=== PATIENT | female | born 2000 | race Two or more races ===

== ENCOUNTER 2025-07-26 06:55 | Observation (INO) | payer OTHER, MEDICAID ==
--- NOTE | 2025-07-26 08:03 | DVH ---
BIOPHYSICAL PROFILE HISTORY: POSTDATES TECHNIQUE: Multiple transabdominal real-time grayscale sonographic images through the gravid uterus of the fetus with duplex Doppler color flow and M-mode spectral analysis FINDINGS: BIOPHYSICAL PROFILE: breathing score: 2 movement score: 2 tone score: 2 Quantitative WENDI score: 2 (WENDI: 12.7 Cm.) Total score: 8 The cervix WAS NOT SEEN Single live fetus in CEPHALIC presentation. heart rate 132 beats per minute. Grade II posterior placenta without previa or abruption IMPRESSION: Biophysical profile score: 8/8
--- NOTE | 2025-07-26 12:49 | DVHDS2 ---
Physician Discharge Progress N Final Diagnosis: term labor check 40wks Operations or Procedures: Operations or Procedures nst reactive reviwed,sono Condition on Discharge: Good Disposition: Home Discharge Instructions: Diet: Regular Activity: No Restrictions, As Tolerated Medications: na Follow Up Care: Specialist: 1 day for induction Discharge Statement: "Patient was advised to return to the ER or call 911 if any headaches, dizziness, shortness of breath, chest pain, abdominal pain, bleeding, fevers, or worsening of medical condition. Patient was counseled about treatment plan, medications, possible side effects, patientverbalized understanding. All questions were answered to the best of my ability. This discharge took greater then 30 minutes in planning, reviewing documentation, counseling the patient, and discussing with other team members." Visit Coding OBGYN Date of Service: Jul 26, 2025 Billing Provider: CHEY STAPLES DO PROPOSAL CONSULTANT Common Visit Codes: [id number] OBS CARE (HIGH) PROPOSAL CONSULTANT Procedure Codes: 23824-37- NON-STRESS TEST CHEY STAPLES DO Jul 26, 2025 12:49
[2025-07-27] MEDS ORDERED: PREN1TAB71 PO (21:15)
== END 2025-07-26 08:33 | disposition home or self-care (01) ==
LOC: LDRP 06:55
PROVIDERS: ADMIT Obstetrics & Gynecology; ATTEND Obstetrics & Gynecology
DX: O48.0 Post-term pregnancy (principal); Z3A.40 40 weeks gestation of pregnancy; Z98.890 Other specified postprocedural states
CPT/HCPCS: 76818; 81002; 94760; G0378; 59025; 76819

== ENCOUNTER 2025-07-27 07:00 | Inpatient (IN) | payer OTHER, MEDICAID ==
[~2025-07-27] VITALS: Ht 167.6 cm; Wt 73.5 kg
[2025-07-27] MEDS ORDERED: LIDOCAINE 2%HCL (LOCAL ANESTH.) INJ 20ML MDV IJ PRN (07:15)
[2025-07-27] MEDS ORDERED: PENICILLIN G POT 5MIL/D5 50ML 50 ML IV ONE (07:15)
[2025-07-27] MEDS ORDERED: BUTORPHANOL TARTRATE 2 MG/1 ML VIAL IV PRN ×2 (07:15)
[2025-07-27 07:46] LABS: Hematocrit 36.3 % (36.0-46.0); Hemoglobin 12.4 g/dL (12.2-16.2); Mean Corpuscular Hemoglobin 29.3 pg (28.0-32.0); Mean Corpuscular Volume 85.6 fL (80.0-100.0); Nucleated Red Blood Cells % 0.0 %
[2025-07-27 07:53] LABS: Urine Protein, UAD Negative (Negative)
[2025-07-27 07:58] LABS: Alanine Aminotransferase 20 U/L (7-40); Albumin 4.2 g/dL (3.2-4.8); Anion Gap 13 (5-15); BUN/Creatinine Ratio 8.2 (10.0-20.0); Calcium 9.1 mg/dL (8.7-10.4); Carbon Dioxide 21 mmol/L (20-31); Chloride 105 mmol/L (98-107); Sodium 139 mmol/L (136-145); Total Protein 7.1 g/dL (5.7-8.2)
[2025-07-27 07:59] LABS: Bilirubin, Total 0.4 mg/dL (0.2-1.0)
[2025-07-27 08:02] LABS: INR 0.92 (0.9-1.15); Partial Thromboplastin Time 23.4 SEC (24.5-34.5); Prothrombin Time 9.8 sec (9.3-11.8)
[2025-07-27 08:04] LABS: Alkaline Phosphatase 256 U/L (46-116); Blood Urea Nitrogen 5 mg/dL (9-23); Glucose 115 mg/dL (74-106); Potassium 3.4 mmol/L (3.5-5.1)
[2025-07-27 08:05] LABS: Amphetamine Screen, Urine Neg (NEGATIVE); Barbiturate Scree,Urine Neg (NEGATIVE); Benzodiazephine Screen, Urine Neg (NEGATIVE); Cannabinoid Screen, Urine Neg (NEGATIVE); Cocaine Screen, Urine Neg (NEGATIVE); Opiate Scree,Urine Neg (NEGATIVE); Phencyclidine Screen, Urine Neg (NEGATIVE)
--- NOTE | 2025-07-27 09:15 | DVHHP ---
CHIEF COMPLAINT: Here for induction of labor. The patient desires induction of labor. HISTORY OF PRESENT ILLNESS: The patient is a 24-year-old 1, para 0 with EDC 07/26, estimated gestational age of 40 plus weeks, admitted for induction of labor. The patient was noted to be 2 cm. The patient's last estimated weight was 7 pounds 2 ounces. She denies having any ruptured membranes or contractions. PAST MEDICAL HISTORY: None. PAST SURGICAL HISTORY: None. SOCIAL HISTORY: None. FAMILY HISTORY: None. OBSTETRIC AND GYNECOLOGIC HISTORY: Blood type A positive, Rubella immune, NIPT and AFP negative. REVIEW OF SYSTEMS: Consistent with HPI. PHYSICAL EXAMINATION: VITAL SIGNS: Stable, afebrile. HEENT: Within normal limits. CARDIOVASCULAR: Regular rate and rhythm. LUNGS: Clear to auscultation. BREASTS: Symmetrical, no masses. ABDOMEN: Gravid, fundal height of 36. Estimated weight 7 pounds 2 ounces. PELVIC: 2 cm, 60%, -2. EXTREMITIES: No clubbing, cyanosis, or edema. IMPRESSION: Intrauterine at 40 plus weeks for induction of labor. PLAN: Induction of labor. Informed consent obtained. Risks and complications of induction were discussed with the patient. We will proceed with Cytotec. Informed consent obtained. DO REYNOLD Metcalf TID: [id number] RECEIPT: [id number]
[2025-07-27] MEDS: LACTATED RINGER'S 1,000 ML IV SCH (10:33)
[2025-07-27] MEDS: PHISODERM TOP SOLN 240ML BTL TOP PRN (10:44)
[2025-07-27] MEDS: DERMOPLAST 60ML BOTTLE TOP PRN (10:44)
[2025-07-27] MEDS: WITCH HAZEL-GLYCERIN PAD TOP PRN (10:44)
[2025-07-27] MEDS ORDERED: PENICILLIN G POTASSIUM 2,500,000 UNITS in D5W 5% 50 ML IV SCH (11:15)
--- NOTE | 2025-07-27 12:23 | DVHPN2 ---
Chief Complaints Patient reports: No new complaints Nursing reports: No new complaints Objective Medications Current Medications Medications (Trade) Dose Ordered Sig/Vignesh Route PRN Reason Start Time Stop Time Status Last Admin Benzocaine (Dermoplast) 1 applic PRN PRN TOP PERINEAL AREA DISCOMFORT 07/27/25 07:15 07/27/25 10:44 Butorphanol Tartrate (Stadol Injection) 1 mg Q4HPRN PRN IV MODERATE PAIN (4-6 PAIN SCALE) 07/27/25 07:15 Butorphanol Tartrate (Stadol Injection) 2 mg Q4HPRN PRN IV SEVERE PAIN (7-10 PAIN SCALE) 07/27/25 07:15 Lactated Ringer's 1,000 ml @ 125 mls/hr Q8H IV 07/27/25 07:15 07/27/25 11:14 Lidocaine HCl (Xylocaine) 20 ml ONCE PRN IJ PERINEAL AREA DISCOMFORT 07/27/25 07:15 Misoprostol (Cytotec) 50 mcg Q4HPRN PRN PO CERVICAL RIPENING 07/27/25 10:00 07/27/25 10:30 Penicillin G Potassium [id number] units/Dextrose 50 ml @ 100 mls/hr Q4H IV 07/27/25 11:15 Sodium Lauryl Sulfate (Phisoderm) 240 ml PRN PRN TOP PERINEAL AREA DISCOMFORT 07/27/25 07:15 07/27/25 10:44 Witch Edith (Tucks) 1 pad PRN PRN TOP PERINEAL AREA DISCOMFORT 07/27/25 07:15 07/27/25 10:44 Others ve-2cm unchanged Studies Laboratory Tests 07/27/25 07:22 Test 07/27/25 07:22 Range/Units Serum Glucose 115 H 74-106 mg/dL Ass/Plan Assessment iol Plan rec one cytotec Visit Coding OBGYN Date of Service: Jul 27, 2025 Billing Provider: CHEY STAPLES DO CORE FINISHER Common Visit Codes: [id number] OBS CARE (HIGH) CORE FINISHER Procedure Codes: 61985-46- NON-STRESS TEST CHEY STAPLES DO Jul 27, 2025 12:23
[2025-07-27] MEDS ORDERED: LACTATED RINGER'S 1,000 ML IV ONE (16:30)
--- NOTE | 2025-07-27 20:47 | DVH ---
ULTRASOUND BIOPHYSICAL PROFILE REASON FOR EXAM: Trial of labor. Post-dates. .40 weeks 1 day. VANESA 07/26/2025. FINDINGS: Two points each were awarded for the following: tone, breathing, movement and adequate amniotic fluid index. Biophysical profile score is 8 out of a possible 8. The amniotic fluid index is 10.4 cm. The fetus is in cephalic position and the placenta is posterior. heart rate 129 beats per minute. IMPRESSION: BIOPHYSICAL PROFILE SCORE OF 8/8.
[2025-07-27] MEDS ORDERED: PREN1TAB71 PO (21:15)
--- NOTE | 2025-07-27 21:37 | DVHPN2 ---
CNM Labor Progress Note Date and Time Seen Date Seen: Jul 27, 2025 Time Seen: 19:30 Subjective Patient reports: No new complaints Monitoring Method Monitoring Method: External Heart Rate Heart Rate Baseline: 130 Heart Rate Variability: Moderate Presence of FHR Accelerations: Yes Presence of FHR Decelerations: No Changes in Trends of Patterns: No Are all 5 Components of the FH: Yes Contractions Contractions Frequency: Other Duration of Contraction: 70 Contractions Intensity: Moderate Contractions Resting Tone: Relaxed Membranes Membranes: Intact Vaginal Exam Vag Exam Deferred: No Vaginal Exam Dilation: 1 Vaginal Exam Effacement: 50 Vaginal Exam Station: -2 Vaginal Exam Presentation: VTX Vaginal Exam Show: None Medications Medications - Pitocin: No Medication - Epidural: No Medication - Other Misoprostol Dose #1 given at 1030AM Lab Results Lab Results Current Medications Medications (Trade) Dose Ordered Sig/Vignesh Start Time Stop Time Status Last Admin Dose Admin Lactated Ringer's 1,000 ml @ 125 mls/hr Q8H 07/27/25 07:15 07/27/25 23:44 DC 07/27/25 11:14 125 MLS/HR Penicillin G Potassium 50 ml @ 100 mls/hr ONCE ONCE 07/27/25 07:15 07/27/25 07:44 DC Penicillin G Potassium [id number] units/Dextrose 50 ml @ 100 mls/hr Q4H 07/27/25 11:15 07/27/25 23:44 DC Rolando Sharma (Tucks) 1 pad PRN PRN 07/27/25 07:15 07/27/25 23:44 DC 07/27/25 10:44 1 PAD Sodium Lauryl Sulfate (Phisoderm) 240 ml PRN PRN 07/27/25 07:15 07/27/25 23:44 DC 07/27/25 10:44 240 ML Benzocaine (Dermoplast) 1 applic PRN PRN 07/27/25 07:15 07/27/25 23:44 DC 07/27/25 10:44 1 APPLIC Butorphanol Tartrate (Stadol Injection) 1 mg Q4HPRN PRN 07/27/25 07:15 07/27/25 23:44 DC Butorphanol Tartrate (Stadol Injection) 2 mg Q4HPRN PRN 07/27/25 07:15 07/27/25 23:44 DC Lidocaine HCl (Xylocaine) 20 ml ONCE PRN 07/27/25 07:15 07/27/25 23:44 DC Misoprostol (Cytotec) 50 mcg Q4HPRN PRN 07/27/25 10:00 07/27/25 23:44 DC 07/27/25 10:30 50 MCG Ephedrine Sulfate (ePHEDrine SULFATE) 10 mg PRN ONCE 07/27/25 16:30 07/27/25 16:51 DC Lactated Ringer's 1,000 ml @ 1,000 mls/hr Q1H ONCE 07/27/25 16:30 07/27/25 17:29 DC Laboratory Tests Test 07/27/25 07:37 07/27/25 07:22 Range/Units Urine Color Light-yellow Yellow Urine Clarity Clear Clear Urine pH 6.5 5.0-9.0 Urine Specific [place] 1.015 1.001-1.035 Urine Protein Negative Negative Urine Ketones Negative Negative Urine Blood Negative Negative /uL Urine Nitrite Negative Negative Urine Bilirubin Negative Negative Urine Urobilinogen Normal Negative mg/dL Urine Leukocyte Esterase 2+ Negative /uL Urine RBC 1 0 - 4 /hpf Urine Microscopic WBC 3 0-5 /HPF Urine Squamous Epithelial Cells Few <5 /hpf Urine Bacteria Few H None Seen /hpf Urine Mucus Few None Seen Urine Glucose Normal Normal mg/dL Urine Opiates Screen Neg NEGATIVE Urine Fentanyl Screen Neg NEGATIVE Urine Barbiturates Screen Neg NEGATIVE Urine Phencyclidine Screen Neg NEGATIVE Urine Amphetamines Screen Neg NEGATIVE Urine Benzodiazepines Screen Neg NEGATIVE Urine Cocaine Screen Neg NEGATIVE Urine Cannabinoids Screen Neg NEGATIVE White Blood Count 11.0 H 4.4-10.8 10^3/uL Red Blood Count 4.24 4.0-5.20 10^6/uL Hemoglobin 12.4 12.2-16.2 g/dL Hematocrit 36.3 36.0-46.0 % Mean Corpuscular Volume 85.6 80.0-100.0 fL Mean Corpuscular Hemoglobin 29.3 28.0-32.0 pg Mean Corpuscular Hemoglobin Concent 34.3 32.0-36.0 g/dL Red Cell Distribution Width 14.5 H 11.8-14.3 % Platelet Count 324 140-450 10^3/uL Mean Platelet Volume 8.3 6.9-10.8 fL Neutrophils (%) (Auto) 71.3 37.0-80.0 % Lymphocytes (%) (Auto) 20.8 10.0-50.0 % Monocytes (%) (Auto) 6.3 0.0-12.0 % Eosinophils (%) (Auto) 1.2 0.0-7.0 % Basophils (%) (Auto) 0.4 0.0-2.0 % Neutrophils # (Auto) 7.8 1.6-8.6 10 ^3/uL Lymphocytes # (Auto) 2.3 0.4-5.4 10 ^3/uL Monocytes # (Auto) 0.7 0-1.3 10 ^3/uL Eosinophils # (Auto) 0.1 0-0.8 10 ^3/uL Basophils # (Auto) 0 0-0.2 10 ^3/uL Nucleated Red Blood Cells 0.0 % Prothrombin Time 9.8 9.3-11.8 sec Prothrombin Time INR 0.92 0.9-1.15 Activated Partial Thromboplast Time 23.4 L 24.5-34.5 SEC Sodium Level 139 136-145 mmol/L Potassium Level 3.4 L 3.5-5.1 mmol/L Chloride Level 105 98-107 mmol/L Carbon Dioxide Level 21 20-31 mmol/L Anion Gap 13 5-15 Blood Urea Nitrogen 5 L 9-23 mg/dL Creatinine 0.61 0.550-1.02 mg/dL Glomerular Filtration Rate Calc 130 >90 mL/min BUN/Creatinine Ratio 8.2 L 10.0-20.0 Serum Glucose 115 H 74-106 mg/dL Calcium Level 9.1 8.7-10.4 mg/dL Total Bilirubin 0.4 0.2-1.0 mg/dL Aspartate Amino Transferase (AST) 20 13-40 U/L Alanine Aminotransferase (ALT) 20 7-40 U/L Alkaline Phosphatase 256 H 46-116 U/L Total Protein 7.1 5.7-8.2 g/dL Albumin 4.2 3.2-4.8 g/dL Treponema pallidum Antibody Non-reactive Negative Hepatitis C Antibody Negative Negative Assessment Assessment <> IUP at 40w 2d <> GBS carrier <> Category 1 FHR tracing <. IOL Plan Plan In consultation with Dr. Pandey Considering / Given very little to no change in cervical status Offer serial IOL; pt to be discharged home and return for IOL in 2 days if Bio- Physical Profile is normal Patient can embark on natural activities /measures that can facilitate descent and labor at home Patient and family informed as above and they all agreed Plan discussed with: Patient, Spouse, Other (Patient's parents) Visit Coding OBGYN Date of Service: Jul 27, 2025 Billing Provider: CHEMO POLANCO CNM REGULATORY SERVICES CONSULTANT Common Visit Codes: [id number] INP/OBS CARE(HIGH) REGULATORY SERVICES CONSULTANT Procedure Codes: 12295-31- NON-STRESS TEST CHEMO POLANCO CNM Jul 27, 2025 21:37
--- NOTE | 2025-07-28 04:01 | DVHDS2 ---
Physician Discharge Progress N Final Diagnosis: <> IUP at 40w 2d <> GBS Carrier <> Category I FHR tracing <> BP 04/21 Operations or Procedures: Operations or Procedures <> IOL started with Cervical ripening <> IV hydration Consultations: Consultations In consultation with Dr. Pandey Considering / Given very little to no change in cervical status Offer serial IOL; pt to be discharged home and return for IOL in 2 days if Bio- Physical Profile is normal Patient can embark on natural activities / measures that can facilitate descent and labor at home Patient and family informed as above and they all agreed Commentary: Commentary In consultation with Dr. Pandey Considering / Given very little to no change in cervical status Offer serial IOL; pt to be discharged home and return for IOL in 2 days if Bio- Physical Profile is normal Patient can embark on natural activities /measures that can facilitate descent and labor at home Patient and family informed as above and they all agreed Condition on Discharge: Good Disposition: Home Discharge Instructions: Diet: Regular Activity: No Restrictions, As Tolerated Follow Up/Referral: Return to L & D on 07/29/25 for IOL if undelivered yet Medications: Continue Vitamin Follow Up Care: Discharge Statement: 3rd trimester emergency S&S [facility], labor & pre-eclampsia precautions reviewed with pt; advised to seek health care if any symptom including but not limited to any of the above occurs prior . "Patient was advised to return to the ER or call 911 if any headaches, dizziness, shortness of breath, chest pain, abdominal pain, bleeding, fevers, or worsening of medical condition. Patient was counseled about treatment plan, medications, possible side effects, patientverbalized understanding. All questions were answered to the best of my ability. This discharge took greater then 30 minutes in planning, reviewing documentation, counseling the patient, and discussing with other team members." Visit Coding OBGYN Date of Service: Jul 27, 2025 Billing Provider: CHEMO POLANCO CNM PLASTICS HEAT WELDER Common Visit Codes: 05287-AEP/OBS SAME DATE (HIGH) PLASTICS HEAT WELDER Procedure Codes: 74276-49- NON-STRESS TEST CHEMO POLANCO CNM Jul 28, 2025 04:01
== END 2025-07-27 21:55 | disposition home or self-care (01) | DRG 833 ==
LOC: LDRP 07:00
PROVIDERS: ADMIT Obstetrics & Gynecology; ATTEND Obstetrics & Gynecology
PROC: 0U7C7ZZ Dilation of Cervix, Via Natural or Artificial Opening (ICD-10-PCS; principal; 2025-07-27)
PROC: 3E0DXGC Introduction of Other Therapeutic Substance into Mouth and Pharynx, External Approach (ICD-10-PCS; 2025-07-27)
DX: O48.0 Post-term pregnancy (principal); O99.820 Streptococcus B carrier state complicating pregnancy; Z3A.40 40 weeks gestation of pregnancy
CPT/HCPCS: 36415; 76819; 80053; 80307; 81001; 85025; 85610; 85730; 86780; 86803; 86850; 86900; 86901; 94762; 96360; 96361; G0378; J7060

== ENCOUNTER 2025-07-30 08:26 | Inpatient (IN) | payer OTHER, MEDICAID ==
[~2025-07-30] VITALS: Ht 165.1 cm; Wt 73.9 kg
[~2025-07-30 08:26] MED LIST: PREN1TAB71 PO
[2025-07-30] MEDS ORDERED: LIDOCAINE 2%HCL (LOCAL ANESTH.) INJ 20ML MDV IJ PRN (09:00)
[2025-07-30] MEDS ORDERED: PHISODERM TOP SOLN 240ML BTL TOP PRN (09:00)
[2025-07-30] MEDS: LACT. RINGERS/OXYTOCIN 20UNITS 500 ML IV ONE (09:30)
[2025-07-30] MEDS: NALOXONE HCL 0.4 MG/ML VIAL IV ONE (09:30)
[2025-07-30 09:50] LABS: Hematocrit 34.6 % (36.0-46.0); Hemoglobin 11.4 g/dL (12.2-16.2); Mean Corpuscular Hemoglobin 28.4 pg (28.0-32.0); Mean Corpuscular Volume 86.1 fL (80.0-100.0); Nucleated Red Blood Cells % 0.0 %
[2025-07-30] MEDS: LACTATED RINGER'S 1,000 ML IV SCH (10:04)
[2025-07-30 10:09] LABS: Alanine Aminotransferase 18 U/L (7-40); Albumin 3.8 g/dL (3.2-4.8); Anion Gap 13 (5-15); BUN/Creatinine Ratio 11.7 (10.0-20.0); Calcium 8.9 mg/dL (8.7-10.4); Glucose 106 mg/dL (74-106); Potassium 3.6 mmol/L (3.5-5.1); Sodium 140 mmol/L (136-145); Total Protein 6.4 g/dL (5.7-8.2)
[2025-07-30] MEDS: ROPIVACAINE HCL 100 ML ONE (10:09)
[2025-07-30 10:10] LABS: Bilirubin, Total 0.3 mg/dL (0.2-1.0)
[2025-07-30 10:13] LABS: Alkaline Phosphatase 255 U/L (46-116); Blood Urea Nitrogen 7 mg/dL (9-23); Carbon Dioxide 19 mmol/L (20-31); Chloride 108 mmol/L (98-107)
[2025-07-30 10:23] LABS: INR 0.92 (0.9-1.15); Partial Thromboplastin Time 25.0 SEC (24.5-34.5); Prothrombin Time 9.8 sec (9.3-11.8)
[2025-07-30] MEDS: PENICILLIN G POT 5MIL/D5 50ML 50 ML IV ONE (10:48)
[2025-07-30 10:51] LABS: Urine Protein, UAD Negative (Negative)
[2025-07-30 11:02] LABS: Amphetamine Screen, Urine Neg (NEGATIVE); Barbiturate Scree,Urine Neg (NEGATIVE); Benzodiazephine Screen, Urine Neg (NEGATIVE); Cannabinoid Screen, Urine Neg (NEGATIVE); Cocaine Screen, Urine Neg (NEGATIVE); Opiate Scree,Urine Neg (NEGATIVE); Phencyclidine Screen, Urine Neg (NEGATIVE)
[2025-07-30] MEDS: PENICILLIN G POTASSIUM 2,500,000 UNITS in D5W 5% 50 ML IV SCH (14:47)
--- NOTE | 2025-07-30 16:09 | DVH ---
LIMITED OB ULTRASOUND > 14 WKS: HISTORY: Rule out Presenting Cord TECHNIQUE: Multiple real-time grayscale images of the gravid uterus with duplex doppler color flow and M-mode spectral analysis. FINDINGS: heart rate 142 beats per minute WENDI 7.0 cm Cervix 1.8 cm with fluid. Cephalic Presentation Grade 3 posterior placenta without previa or abruption. 3.6 x 2.1 x 2.4 cm lesion between the cervix and head with internal echos. IMPRESSION: 3.6 x 2.1 x 2.4 cm lesion between the cervix and head with internal echos could be a hematoma with a presenting cord not entirely excluded. This was not seen on the prior US exams.
[2025-07-30] MEDS ORDERED: ROPIVACAINE HCL 100 ML ONE ×2 (16:34→22:03)
--- NOTE | 2025-07-30 16:56 | DVH ---
BIOPHYSICAL PROFILE HISTORY: non reassurring heart tones TECHNIQUE: Multiple transabdominal real-time grayscale sonographic images through the gravid uterus of the fetus with duplex Doppler color flow and M-mode spectral analysis FINDINGS: BIOPHYSICAL PROFILE: breathing score: 0 movement score: 0 tone score: 0 Quantitative WENDI score: 2 (WENDI: 9.25 cm, MVP: 3.48 cm.) Total score: 2/8 The cervix not visible Single live fetus in cephalic presentation. heart rate 141 beats per minute. Posterior Grade 3 placenta without previa or abruption Single live fetus at 40 weeks 4 days Biophysical profile score 2/8 corresponding to an VANESA of 07 26 2025 IMPRESSION: 1. Biophysical profile score: 2/JAILENE WEBBER accompanying patient is aware of results. CRITICAL FINDINGS Critical Result: bpp: 2/8 Findings discussed with Jailene WEBBER , at 07/30/2025 04:52 PM, and acknowledged receipt and understanding of the findings. ..
[2025-07-30] MEDS: ACETAMINOPHEN 325 MG TAB PO PRN (17:58)
--- NOTE | 2025-07-30 21:55 | DVHHP2 ---
OB CC & HPI Date Date of Admission: Jul 29, 2025 Patient Identification: : 1 Para: 0 EDC: Jul 28, 2025 EGA: 40 2/7 Chief Complaints: Reason for admission: active labor, rupture of membranes Other reason for admission: SROM Admission Nurse Assessment Rev: Yes Past Medical History Cardiac: No pertinent Hx Pulmonary: No pertinent Hx Central Nervous System: No pertinent Hx GI: No pertinent Hx Hemotology/Oncology: No pertinent Hx Hepatobiliary: No pertinent Hx Psychiatric: No pertinent Hx Musculoskeletal: No pertinent Hx Rheumotologic: No pertinent Hx Infectious Disease: No peritnent Hx ENT: No pertinent Hx Renal/: No pertinent Hx Endocrine: No pertinent Hx Dermatology: No pertinent Hx OB History OB History Care: Good Care Ultrasounds: Normal mid trimester US Medical Complications: None Allergies: Coded Allergies: NO KNOWN ALLERGIES (Unverified , 07/27/25) Home Meds Reported Medications Vit W/ Ferrous Fumara (PNV PLUS MULTIVI) Plus Tab, 1 TAB PO DAILY, TAB 07/27/25 Current Medications Current Medications Medications (Trade) Dose Ordered Sig/Vignesh Route PRN Reason Start Time Stop Time Status Last Admin Lactated Ringer's 1,000 ml @ 125 mls/hr Q8H IV 07/30/25 09:00 07/30/25 10:04 Penicillin G Potassium [id number] units/Dextrose 50 ml @ 100 mls/hr Q4H IV 07/30/25 13:00 07/30/25 18:48 Witch Edith (Tucks) 1 pad PRN PRN TOP PERINEAL AREA DISCOMFORT 07/30/25 09:00 Sodium Lauryl Sulfate (Phisoderm) 240 ml PRN PRN TOP PERINEAL AREA DISCOMFORT 07/30/25 09:00 Benzocaine (Dermoplast) 1 applic PRN PRN TOP PERINEAL AREA DISCOMFORT 07/30/25 09:00 Lidocaine HCl (Xylocaine) 20 ml ONCE PRN IJ PERINEAL AREA DISCOMFORT 07/30/25 09:00 Oxytocin 1,000 ml @ 6 ml/hr Q24H IV 07/30/25 09:00 Acetaminophen (Tylenol Tablet) 650 mg Q6HP PRN PO PAIN SCALE 1-3 OR TEMP>100.4 07/30/25 17:45 07/30/25 17:58 Family & Social History Family/Social History Blood Type: A+ Rubella: immune RPR/VDRL: Negative GBS Status: Positive HBsAG: Negative Review of Systems Constitutional: No symptom reported Ears, Nose, & Throat: No symptom reported Eyes: No symptom reported Pulmonary/Respiratory: No symptom reported Cardiovascular: No symptom reported Gastrointestinal: No symptom reported Genitourinary: No symptom reported Musculoskeletal: No symptom reported Skin: No symptom reported Psychiatric: No symptom reported Endocrine: No symptom reported Hemotologic/Lymphatic: No symptom reported OB Admission Exam Physical Exam Vitals: Vital Signs Date Time Temp Pulse Resp B/P (MAP) Pulse Ox O2 Delivery O2 Flow Rate FiO2 07/30/25 17:58 100.4 HEENT: TMs Normal, Fontanelles Normal, Nasal Mucosa Normal, Eyes non-injected, Oropharynx Normal, PERRLA, Moist Membranes, EOMI Heart: Rhythm Normal Lungs: Clear Abdomen: Non tender Extremities: Normal Reflexes: Normal Cervical Dilatation: 5cm Effacement: 100% Station: 0 Membranes: Ruptured (clear) Amniotic Fluid: Clear Heart Rate: 140's Accelerations: Accelerations Present Short Term Variability: Present Long-Term Variability: Average (6-25) Contractions on Admission: < 5 Minutes Apart Intensity: Moderate OB Plan Plan Admitting Diagnosis: SROM Labor Plan: Expectant Management Other Plan: FSE IUPC placed she was having some subtle late, ultrasound performed positioning and questionable cord position. On my exam only caput no prolapse cord. I FSE IUPC placed. Amnioinfusion started. CAROL CUNNINGHAM DO Jul 30, 2025 21:55
--- NOTE | 2025-07-30 21:58 | LDN2 ---
Labor and Delivery Note Date 07/30/25 Age 24 1 Para 0 AB 0 EDC 07/28/2025 EGA 40+ wks Diagnosis SROM labor augmented Sex: Male Amniotic Fluid: Clear Anesthesia Epidural Episiotomy: No Labs Blood Bank 07/30/25 09:15: Blood Type A POSITIVE Complications none Conditions stable Flavorings Compounder none present Visit Coding OBGYN Date of Service: Jul 30, 2025 Billing Provider: CAROL CUNNINGHAM DO WHEEL SHOP SUPERVISOR Common Visit Codes: [id number] INP/OBS CARE(HIGH), 02576-QGB/OBS SAME DATE (LOW), 97345-DAK/OBS SAME DATE (MOD) WHEEL SHOP SUPERVISOR Procedure Codes: 87376-AEIPL OB CARE,VAG DELIVERY CAROL CUNNINGHAM DO Jul 30, 2025 21:58
[2025-07-30] MEDS: ceFAZolin 1GM/50ML 50 ML IV SCH (23:51)
[2025-07-30] MEDS: LACT. RINGERS/OXYTOCIN 20UNITS 1,000 ML IV SCH (23:53)
[2025-07-31] MEDS: LACT. RINGERS/OXYTOCIN 20UNITS 500 ML IV ONE (02:30)
--- NOTE | 2025-07-31 05:01 | DVHPN2 ---
Chief Complaints Patient reports: No new complaints, Feels better Nursing reports: No new complaints, No abdominal pain, No chest pain, No dizziness, No cough Objective Vitals Vital Signs Date Time Temp Pulse Resp B/P (MAP) Pulse Ox O2 Delivery O2 Flow Rate FiO2 07/31/25 00:03 99.4 Medications Current Medications Medications (Trade) Dose Ordered Sig/Vignesh Route PRN Reason Start Time Stop Time Status Last Admin Acetaminophen (Tylenol Tablet) 650 mg Q6HP PRN PO PAIN SCALE 1-3 OR TEMP>100.4 07/30/25 17:45 07/31/25 00:03 Benzocaine (Dermoplast) 1 applic PRN PRN TOP PERINEAL AREA DISCOMFORT 07/30/25 09:00 Cefazolin Sodium 50 ml @ 100 mls/hr Q8HR IV 07/30/25 23:30 07/30/25 23:51 Lactated Ringer's 1,000 ml @ 125 mls/hr Q8H IV 07/30/25 09:00 07/30/25 10:04 Lidocaine HCl (Xylocaine) 20 ml ONCE PRN IJ PERINEAL AREA DISCOMFORT 07/30/25 09:00 Oxytocin 1,000 ml @ 6 ml/hr Q24H IV 07/30/25 09:00 07/30/25 23:53 Penicillin G Potassium [id number] units/Dextrose 50 ml @ 100 mls/hr Q4H IV 07/30/25 13:00 07/30/25 22:46 Sodium Lauryl Sulfate (Phisoderm) 240 ml PRN PRN TOP PERINEAL AREA DISCOMFORT 07/30/25 09:00 Rolando Sharma (Tucks) 1 pad PRN PRN TOP PERINEAL AREA DISCOMFORT 07/30/25 09:00 General: Normal ENT: Normal Neck: Normal Lungs: Normal Cardiovascular: Normal Abdominal: Normal (Uterus 12 weeks size firm minimal lochia) Musculoskeletal: Normal Extremities: Normal Neurological: Normal Studies Laboratory Tests 07/30/25 09:15 Test 07/30/25 09:15 Range/Units Serum Glucose 106 74-106 mg/dL Ass/Plan Assessment day 1 stable improved Plan Advanced care. CAROL CUNNINGHAM DO Jul 31, 2025 05:01
[2025-07-31] MEDS ORDERED: ACETAMINOPHEN 325 MG TAB PO PRN (06:45)
[2025-07-31 07:00] VITALS: BP 119/83; PULSE 109; RESP 17; TEMP 98.2; O2SAT 96
[2025-07-31] MEDS: IBUPROFEN 600 MG TAB PO PRN (07:32)
[2025-07-31 11:00] VITALS: BP 110/68; PULSE 98; RESP 15; TEMP 98.4; O2SAT 98
[2025-07-31 15:00] VITALS: BP 112/69; PULSE 106; RESP 16; TEMP 98.1; O2SAT 98
[2025-07-31 18:47] VITALS: BP 109/72; PULSE 97; RESP 18; TEMP 98.2; O2SAT 97
[2025-07-31] MEDS: CEPHALEXIN 250 MG CAP PO SCH (22:00)
[2025-07-31 23:10] VITALS: BP 115/65; PULSE 90; RESP 17; TEMP 97.7; O2SAT 98
[2025-08-01 03:06] VITALS: BP 98/61; PULSE 106; RESP 16; TEMP 98.5; O2SAT 97
--- NOTE | 2025-08-01 05:38 | DVHDS2 ---
Discharge Summary Date of Admission Jul 30, 2025 at 09:01 Date of Discharge: Aug 01, 2025 Admitting Diagnosis Spontaneous rupture membranes intrauterine in labor Labs/Diagnostic Data: Laboratory Results Test 07/30/25 09:15 07/30/25 09:00 White Blood Count 11.5 10^3/uL (4.4-10.8) Red Blood Count 4.02 10^6/uL (4.0-5.20) Hemoglobin 11.4 g/dL (12.2-16.2) Hematocrit 34.6 % (36.0-46.0) Mean Corpuscular Volume 86.1 fL (80.0-100.0) Mean Corpuscular Hemoglobin 28.4 pg (28.0-32.0) Mean Corpuscular Hemoglobin Concent 33.0 g/dL (32.0-36.0) Red Cell Distribution Width 14.8 % (11.8-14.3) Platelet Count 309 10^3/uL (140-450) Mean Platelet Volume 8.3 fL (6.9-10.8) Neutrophils (%) (Auto) 71.5 % (37.0-80.0) Lymphocytes (%) (Auto) 19.1 % (10.0-50.0) Monocytes (%) (Auto) 8.1 % (0.0-12.0) Eosinophils (%) (Auto) 1.1 % (0.0-7.0) Basophils (%) (Auto) 0.2 % (0.0-2.0) Neutrophils # (Auto) 8.2 10 ^3/uL (1.6-8.6) Lymphocytes # (Auto) 2.2 10 ^3/uL (0.4-5.4) Monocytes # (Auto) 0.9 10 ^3/uL (0-1.3) Eosinophils # (Auto) 0.1 10 ^3/uL (0-0.8) Basophils # (Auto) 0 10 ^3/uL (0-0.2) Nucleated Red Blood Cells 0.0 % Prothrombin Time 9.8 sec (9.3-11.8) Prothrombin Time INR 0.92 (0.9-1.15) Activated Partial Thromboplast Time 25.0 SEC (24.5-34.5) Sodium Level 140 mmol/L (136-145) Potassium Level 3.6 mmol/L (3.5-5.1) Chloride Level 108 mmol/L (98-107) Carbon Dioxide Level 19 mmol/L (20-31) Anion Gap 13 (5-15) Blood Urea Nitrogen 7 mg/dL (9-23) Creatinine 0.60 mg/dL (0.550-1.02) Glomerular Filtration Rate Calc 130 mL/min (>90) BUN/Creatinine Ratio 11.7 (10.0-20.0) Serum Glucose 106 mg/dL (74-106) Calcium Level 8.9 mg/dL (8.7-10.4) Total Bilirubin 0.3 mg/dL (0.2-1.0) Aspartate Amino Transferase (AST) 20 U/L (13-40) Alanine Aminotransferase (ALT) 18 U/L (7-40) Alkaline Phosphatase 255 U/L (46-116) Total Protein 6.4 g/dL (5.7-8.2) Albumin 3.8 g/dL (3.2-4.8) Treponema pallidum Antibody Non-reactive (Negative) Urine Color Light-yellow (Yellow) Urine Clarity Clear (Clear) Urine pH 6.5 (5.0-9.0) Urine Specific [place] 1.017 (1.001-1.035) Urine Protein Negative (Negative) Urine Ketones Negative (Negative) Urine Blood Negative /uL (Negative) Urine Nitrite Negative (Negative) Urine Bilirubin Negative (Negative) Urine Urobilinogen Normal mg/dL (Negative) Urine Leukocyte Esterase 1+ /uL (Negative) Urine RBC 3 /hpf (0 - 4) Urine Microscopic WBC 7 /HPF (0-5) Urine Squamous Epithelial Cells Few /hpf (<5) Urine Bacteria None seen /hpf (None Seen) Urine Mucus Few (None Seen) Urine Glucose Normal mg/dL (Normal) Urine Opiates Screen Neg (NEGATIVE) Urine Fentanyl Screen Neg (NEGATIVE) Urine Barbiturates Screen Neg (NEGATIVE) Urine Phencyclidine Screen Neg (NEGATIVE) Urine Amphetamines Screen Neg (NEGATIVE) Urine Benzodiazepines Screen Neg (NEGATIVE) Urine Cocaine Screen Neg (NEGATIVE) Urine Cannabinoids Screen Neg (NEGATIVE) Other Laboratory Tests 07/30/25 09:15 Brief Hx & Hospital Course: Patient arrived from progressed to delivery no intrapartum or complications stable for discharge home day 2 Condition at Discharge: Good Final Diagnosis/Problems List Spontaneous vaginal delivery Discharge Disposition: Home Discharge Instruct/Medications Diet: Regular Activity: Light activity Activity comment: Pelvic rest 6 weeks Follow Up/Referral: Two weeks primary OB physician Medications: Resume home meds and vitamin Scheduled Vit W/ Ferrous Fumara (Pnv Plus Multivi), 1 TAB PO DAILY, (Reported) Discharge Statement: "Patient was advised to return to the ER or call 911 if any headaches, dizziness, shortness of breath, chest pain, abdominal pain, bleeding, fevers, or worsening of medical condition. Patient was counseled about treatment plan, medications, possible side effects, patientverbalized understanding. All questions were answered to the best of my ability. This discharge took greater then 30 minutes in planning, reviewing documentation, counseling the patient, and discussing with other team members." ASSESSMENT ASSESSMENT Assessment Visit Coding OBGYN Date of Service: Aug 01, 2025 Billing Provider: CAROL CUNNINGHAM DO CERTIFIED VEHICLE FIRE INVESTIGATOR Common Visit Codes: [id number] INP/OBS CARE(HIGH) CERTIFIED VEHICLE FIRE INVESTIGATOR Procedure Codes: [id number] OB CARE,VAG DELIVERY CAROL CUNNINGHAM DO Aug 01, 2025 05:38
[2025-08-01 07:00] VITALS: BP 108/65; PULSE 92; RESP 15; TEMP 98.2; O2SAT 98
[2025-08-01 11:10] VITALS: BP 118/59; PULSE 82; RESP 16; TEMP 98.7; O2SAT 98
[2025-08-01] MEDS: WITCH HAZEL-GLYCERIN PAD TOP PRN (11:23)
[2025-08-01] MEDS: DERMOPLAST 60ML BOTTLE TOP PRN (11:23)
[2025-08-01 15:00] VITALS: BP 114/70; PULSE 104; RESP 20; TEMP 98.4; O2SAT 98
[2025-08-01 19:30] VITALS: BP 129/83; PULSE 98; RESP 15; TEMP 98.8; O2SAT 98
[2025-08-01] MEDS ORDERED: DOCU-94 PO (19:44)
[2025-08-01] MEDS ORDERED: PREN1TAB71 PO (19:44)
[2025-08-01] MEDS ORDERED: IBU600T PO (19:44)
[2025-08-01 20:12] LABS: Hematocrit 28.7 % (36.0-46.0); Hemoglobin 9.8 g/dL (12.2-16.2); Mean Corpuscular Hemoglobin 28.9 pg (28.0-32.0); Mean Corpuscular Volume 84.8 fL (80.0-100.0); Nucleated Red Blood Cells % 0.0 %
[2025-08-01 23:00] VITALS: BP 122/75; PULSE 75; RESP 17; TEMP 98.3; O2SAT 97
[2025-08-02 03:00] VITALS: BP 105/64; PULSE 66; RESP 16; TEMP 98.3; O2SAT 96
--- NOTE | 2025-08-02 04:10 | DVHPN2 ---
Progress Note Date Seen: Aug 02, 2025 Subjective S: bleeding is less, eating food without issues, denies lightheaded/dizziness, pain well controlled with oral medications, no concerns with urinating, passing flatus, no BM yet, ambulating well, well. vital signs Vital Sign Date Time Temp Pulse Resp B/P (MAP) Pulse Ox O2 Delivery O2 Flow Rate FiO2 08/02/25 03:00 98.3 66 16 105/64 (78) 96 98.3 08/01/25 07:00 Room Air 0.0 medications Current Medications Medications Dose Ordered Sig/Vignesh Route Start Time Stop Time Status Last Admin Dose Admin Witch Edith 1 pad PRN PRN TOP 07/30/25 09:00 08/01/25 11:23 1 PAD Sodium Lauryl Sulfate 240 ml PRN PRN TOP 07/30/25 09:00 Benzocaine 1 applic PRN PRN TOP 07/30/25 09:00 08/01/25 11:23 1 APPLIC Lidocaine HCl 20 ml ONCE PRN IJ 07/30/25 09:00 Acetaminophen 650 mg Q6HP PRN PO 07/30/25 17:45 08/02/25 00:50 650 MG Ibuprofen 600 mg Q6HP PRN PO 07/31/25 06:45 07/31/25 20:06 600 MG Acetaminophen 650 mg Q4HP PRN PO 07/31/25 06:45 Cephalexin 500 mg Q8HR PO 07/31/25 22:00 08/01/25 21:52 500 MG laboratory and microbiology Laboratory Tests 08/01/25 19:58 07/30/25 09:15 Test 07/30/25 09:15 Range/Units Serum Glucose 106 74-106 mg/dL Objective O: VSS Chest: heart sounds normal and lung sounds clear bilaterally Abd: soft, non-tender, fundus 1-U/firm/midline, active bowel sounds, no rebound or guarding Perineum: sutures intact, edges well approximated, no erythema/edema noted Ext: Non-tender, No edema, 2+ BLE DTRs Lochia: minimal See lab results Problems(with codes): (1) (normal spontaneous vaginal delivery) (2) Precipitous drop in hematocrit Assessment/Plan A: 24yo now PPD#1 s/p Rh+ Rubella Immune P: D/C home today Rx sent to pharmacy precautions and preeclampsia warning signs reviewed F/U with [facility] office in 2 weeks Plan discussed with: Patient CRISTINA DAMICO STUDENTMDW Aug 02, 2025 04:10
--- NOTE | 2025-08-02 04:11 | DVHDS2 ---
Obstetrics Discharge Summary Obstetrics Discharge Summary Date of Admission: Jul 30, 2025 Date of Discharge: Aug 02, 2025 Reason For Admission: Onset of Labor, Others (SROM) Procedures: NST, Ultrasound Intrapartum Procedures: Spontaneous vaginal deliv Procedures: Hct/date: (08/01/25), Hgb/date: (08/01/25) Operative Complicat: None Discharge Diagnosis: Term -Delivered Discharge Information: Activity (activity as tolerated, no heavy lifting, nothing in the vagina for six weeks), Diet (regular), Medications (rx sent), Instructions (routine), Discharge to (Home), Accompanied by (partner), Discarge date (08/02/2025) Visit Coding OBGYN Date of Service: Aug 02, 2025 Billing Provider: CHRISTOPHE HYATT CNM FILM FLAT INSPECTOR Common Visit Codes: [id number]/[id number] DISCH DAY <30MIN CRISTINA DAMICO STUDENTMDW Aug 02, 2025 04:11
[2025-08-02] MEDS ORDERED: ASCO1TAB27 PO (04:23)
[2025-08-02] MEDS ORDERED: FER325T PO (04:23)
== END 2025-08-02 13:05 | disposition home or self-care (01) | DRG 805 ==
LOC: LDRP 08:51 → OBSVTOIN 08:51 → INTOOBSV 08:51 → UNDOADMOB 08:51 → OBSVTOIN 09:01 → LDRP 09:01
PROVIDERS: ADMIT Obstetrics & Gynecology; ATTEND Obstetrics & Gynecology
PROC: 10H07YZ Insertion of Other Device into Products of Conception, Via Natural or Artificial Opening (ICD-10-PCS; 2025-07-30)
PROC: 3E0E3GC Introduction of Other Therapeutic Substance into Products of Conception, Percutaneous Approach (ICD-10-PCS; 2025-07-30)
PROC: 10E0XZZ Delivery of Products of Conception, External Approach (ICD-10-PCS; principal; 2025-07-31)
PROC: 00HU33Z Insertion of Infusion Device into Spinal Canal, Percutaneous Approach (ICD-10-PCS; 2025-07-31)
PROC: 3E0R3BZ Introduction of Anesthetic Agent into Spinal Canal, Percutaneous Approach (ICD-10-PCS; 2025-07-31)
DX: O48.0 Post-term pregnancy (principal); O41.1230 Chorioamnionitis, third trimester, not applicable or unspecified; Z37.0 Single live birth; R71.0 Precipitous drop in hematocrit; Z3A.40 40 weeks gestation of pregnancy
CPT/HCPCS: 36415; 59025; 59409; 62282; 76815; 76819; 80053; 80307; 81001; 85025; 85610; 85730; 86780; 86850; 86900; 86901; 94760; 94762; 96360; 96361; 96365; 96366; 96374; G0378; J2540; J2590; J7060